=== PATIENT | female | born 1990 | race Caucasian/White ===

== ENCOUNTER 2018-07-30 19:05 | Inpatient (IN) | payer MEDICAID ==
[2018-07-30 19:59] LABS: ADD MAN DIFF? NO
[2018-07-30] MEDS ORDERED: OXYTOCIN 30 UNITS/LR 500 ML IV (20:00)
[2018-07-30] MEDS ORDERED: CARBOPROST 250 MCG INJ IM (20:00)
[2018-07-30] MEDS ORDERED: METHYLERGONOVINE 0.2 MG INJ IM (20:00)
[2018-07-30] MEDS ORDERED: MISOPROSTOL 200 MCG TAB PR (20:00)
[2018-07-30 20:08] LABS: WHITE BLOOD COUNT 6.8 10^3/ul (4.8-10.8)
[2018-07-30 20:08] LABS: BASOPHILS % 0.3 % (0.0-2.0); EOSINOPHILS # 0.1 10^3/ul (0.0-0.5); EOSINOPHILS % 1.5 % (0.0-7.0); HEMATOCRIT 32.6 % (37.0-47.0); HEMOGLOBIN 10.1 g/dl (12.0-16.0); LYMPHOCYTES # 1.5 10^3/ul (0.8-2.9); LYMPHOCYTES % 21.9 % (15.0-51.0); MEAN CORPUSCULAR HEMOGLOBIN 22.4 pg (29.0-33.0); MEAN CORPUSCULAR VOLUME 72.3 fl (82.0-101.0); MONOCYTE # 0.6 10^3/ul (0.3-0.9); MONOCYTES % 8.7 % (0.0-11.0); NEUTROPHIL # 4.5 10^3/ul (1.6-7.5); NEUTROPHILS % 67.2 % (39.0-77.0); PLATELET COUNT 264 10^3/UL (140-415); RED BLOOD COUNT 4.51 10^6/ul (4.20-5.40); RED CELL DISTRIBUTION WIDTH 14.7 % (11.5-14.5)
[2018-07-30] MEDS: AMPICILLIN 2 GM/NS (PMX) 100 ML IVPB (20:18)
[2018-07-30] MEDS: LACTATED RINGER'S 1,000 ML IV (20:18)
[2018-07-30 20:28] LABS: INR 1.01; PROTIME 13.4 Sec (11.9-14.9)
[2018-07-30 20:29] LABS: PARTIAL THROMBOPLASTIN TIME 26.3 Sec (23.0-35.0)
[2018-07-30 21:00] LABS: HEPATITIS B SURFACE ANTIGEN NEGATIVE (NEGATIVE)
[2018-07-30] MEDS: AMPICILLIN 1 GM/NS (PMX) 50 ML IVPB (23:49)
[2018-07-31] MEDS: LACTATED RINGER'S 1,000 ML IV ×3 (02:41→10:21)
[2018-07-31] MEDS: AMPICILLIN 1 GM/NS (PMX) 50 ML IVPB ×2 (04:31→05:00)
[2018-07-31] MEDS ORDERED: METOCLOPRAMIDE 10 MG INJ (07:00)
[2018-07-31] MEDS ORDERED: EPHEDrine SULFATE 50 MG/5 ML SYG (07:00)
[2018-07-31] MEDS ORDERED: BUPIVACAINE 0.75%/DEXT (SPINAL) 2 ML INJ (08:13)
[2018-07-31] MEDS ORDERED: morphine SULFATE/PF (10 MG/10 ML) INJ (08:13)
[2018-07-31] MEDS ORDERED: PHENYLephrine 10 MG INJ (08:29)
[2018-07-31] MEDS: CEFAZOLIN 2 GM/50 ML (PMX) 50 ML IVPB (08:51)
[2018-07-31] MEDS ORDERED: MIDAZOLAM 1 MG/ML 2 ML INJ (08:53)
[2018-07-31] MEDS ORDERED: OXYTOCIN 10 UNIT INJ ×2 (08:54→09:52)
[2018-07-31] MEDS ORDERED: ONDANSETRON 4 MG INJ (09:07)
[2018-07-31] MEDS ORDERED: DIPHENHYDRAMINE 50 MG INJ (09:22)
[2018-07-31] MEDS ORDERED: ZOLPIDEM 5 MG TAB PO ×2 (09:30→11:00)
[2018-07-31] MEDS ORDERED: MEPERIDINE 25 MG INJ IV (09:30)
[2018-07-31] MEDS ORDERED: MIDAZOLAM 1 MG/ML 2 ML INJ IV (09:30)
[2018-07-31] MEDS ORDERED: METOCLOPRAMIDE 10 MG INJ IV (09:30)
[2018-07-31] MEDS ORDERED: NALBUPHINE HCL (10 MG/1 ML) INJ IV (09:30)
[2018-07-31] MEDS ORDERED: NALOXONE (0.4 MG/ML) INJ IV (09:30)
[2018-07-31] MEDS ORDERED: HYDROmorphONE 0.5 MG/0.5 ML SYG IV (09:30)
[2018-07-31] MEDS ORDERED: DIPHENHYDRAMINE 50 MG INJ IV ×2 (09:30→11:00)
[2018-07-31] MEDS ORDERED: ONDANSETRON 4 MG INJ IV ×3 (09:30→11:00)
[2018-07-31] MEDS: KETOROLAC 30 MG INJ IV ×2 (10:12→19:28)
[2018-07-31] MEDS: OXYTOCIN 30 UNITS/LR 500 ML IV (10:15)
[2018-07-31] MEDS: DIPHENHYDRAMINE 50 MG INJ IV ×2 (10:45→17:43)
[2018-07-31] MEDS ORDERED: WITCH HAZEL/GLYCERIN PAD PR (11:00)
[2018-07-31] MEDS ORDERED: OXYTOCIN 30 UNITS/LR 500 ML IV (11:00)
[2018-07-31] MEDS ORDERED: DIBUCAINE 1% 30 GM OINT TOP (11:00)
[2018-07-31] MEDS ORDERED: METHYLERGONOVINE 0.2 MG INJ IM (11:00)
[2018-07-31] MEDS ORDERED: CARBOPROST 250 MCG INJ IM (11:00)
[2018-07-31] MEDS ORDERED: MISOPROSTOL 200 MCG TAB PR (11:00)
[2018-07-31] MEDS ORDERED: LANOLIN 7 GM TUBE TOP (11:00)
[2018-07-31] MEDS ORDERED: ACETAMINOPHEN 325 MG TAB PO (11:00)
[2018-07-31] MEDS ORDERED: BENZOCAINE 20% 56 ML SPRAY TOP (11:00)
[2018-07-31] MEDS: HYDROmorphONE 0.5 MG/0.5 ML SYG IV (14:33)
[2018-07-31] MEDS: DEXTROSE 5%-LR 1,000 ML IV (14:46)
[2018-07-31 15:16] LABS: RAPID PLASMA REAGIN NONREACTIVE (NR)
[2018-07-31] MEDS: LACTATED RINGER'S 1,000 ML IV* (23:56)
[2018-08-01] MEDS: LACTATED RINGER'S 1,000 ML IV* (02:38)
[2018-08-01] MEDS: KETOROLAC 30 MG INJ IV (05:05)
[2018-08-01 08:53] LABS: ADD MAN DIFF? NO
[2018-08-01 08:56] LABS: WHITE BLOOD COUNT 7.2 10^3/ul (4.8-10.8)
[2018-08-01 08:56] LABS: BASOPHILS % 0.1 % (0.0-2.0); EOSINOPHILS # 0.1 10^3/ul (0.0-0.5); EOSINOPHILS % 1.1 % (0.0-7.0); HEMATOCRIT 29.1 % (37.0-47.0); HEMOGLOBIN 8.7 g/dl (12.0-16.0); LYMPHOCYTES % 14.4 % (15.0-51.0); MEAN CORPUSCULAR HEMOGLOBIN 22.2 pg (29.0-33.0); MEAN CORPUSCULAR HGB CONC 29.9 g/dl (32.0-37.0); MEAN CORPUSCULAR VOLUME 74.2 fl (82.0-101.0); MEAN PLATELET VOLUME 10.1 fl (7.4-10.4); MONOCYTE # 0.7 10^3/ul (0.3-0.9); MONOCYTES % 9.8 % (0.0-11.0); NEUTROPHIL # 5.4 10^3/ul (1.6-7.5); PLATELET COUNT 233 10^3/UL (140-415); RED BLOOD COUNT 3.92 10^6/ul (4.20-5.40)
[2018-08-01] MEDS: IBUPROFEN 600 MG TAB PO ×3 (11:51→23:25)
[2018-08-01] MEDS: HYDROCODONE/APAP (5/325) TAB PO ×3 (12:00→22:43)
[2018-08-01] MEDS: ZOLPIDEM 5 MG TAB PO (23:26)
[2018-08-02] MEDS: ZOLPIDEM 5 MG TAB PO (00:16)
[2018-08-02] MEDS: HYDROCODONE/APAP (5/325) TAB PO ×4 (05:39→21:56)
[2018-08-02] MEDS: IBUPROFEN 600 MG TAB PO ×3 (05:40→17:16)
[2018-08-02] MEDS: DIPHTH/TET/ACEL PERTUSS (ADULT) 0.5 ML VIAL IM* (09:00)
[2018-08-02] MEDS: MEASLES,MUMPS,RUBELLA VACCINE INJ SC* (09:00)
[2018-08-03] MEDS: IBUPROFEN 600 MG TAB PO ×4 (00:31→17:36)
[2018-08-03] MEDS: HYDROCODONE/APAP (5/325) TAB PO ×3 (01:45→15:28)
[2018-08-03] MEDS: SENNA/DOCUSATE NA (8.6MG/50MG) TAB PO (08:06)
== END 2018-08-03 18:35 | disposition home or self-care (01) | DRG 788 ==
LOC: L-D 19:05 → PP1 07-31 14:57
PROVIDERS: Obstetrics & Gynecology
PROC: 10D00Z1 Extraction of Products of Conception, Low, Open Approach (ICD-10-PCS; principal; 2018-07-31 07:30)
PROC: 3E033VJ Introduction of Other Hormone into Peripheral Vein, Percutaneous Approach (ICD-10-PCS; 2018-07-31 07:30)
DX: O34.211 Maternal care for low transverse scar from previous cesarean delivery (principal); Z3A.39 39 weeks gestation of pregnancy; Z37.0 Single live birth
CPT/HCPCS: 85025; 85610; 85730; 86592; 86850; 86900; 86901; 87340; 90715; 99464